=== PATIENT | female | born 1965 | race Caucasian/White ===

== ENCOUNTER 2022-03-05 09:06 | Emergency (ER) | payer OTHER, SELFPAY ==
--- NOTE | 2022-03-05 09:08 | ED.URI ---
HPI - URI/Sore Throat General Stated Complaint: Sore Throat/Back Pain Time Seen by Provider: 03/05/22 09:08 Source: patient and RN notes reviewed History of Present Illness HPI Narrative: patient is a 56-year-old female who presents to urgent care with complaints of back pain, sore throat and congestion. Patient states that her symptoms started 3 days ago and she has been taking amoxicillin. Patient states that with leftover medication from an old infection. Patient has not followed up her doctor. Denies any fever cough. States she had a negative COVID test at home. No other acute complaints. No distress noted. Patient aware of the plan of care. Some parts of this dictation were generated by voice recognition software and may contain typographical and/or grammatical inaccuracies. Related Data Home Medications Medication Instructions Recorded Confirmed No Home Medications 03/05/22 03/05/22 Allergies Allergy/AdvReac Type Severity Reaction Status Date / Time No Known Allergies Allergy Verified 03/05/22 09:26 Review of Systems Review of Systems: CONSTITUTIONAL: Denies fever, chills, or sweats. EYES: Denies visual changes, redness, or discharge. ENT: Reports of congestion, rhinorrhea and sore throat CARDIOVASCULAR: Denies chest pain, palpitations, or edema. RESPIRATORY: Denies cough or dyspnea. GASTROINTESTINAL: Denies abdominal pain, nausea, vomiting, or diarrhea. GENITOURINARY: Denies dysuria or hematuria. SKIN: Denies rash or itching. MUSCULOSKELETAL: Reports of body aches / back pain NEUROLOGIC: Denies headache, numbness, or weakness. All other systems reviewed are negative, except as documented in HPI. PMFSH Comments At the time of my signature, I reviewed and agree with the nursing past medical, surgical, social, and family history. There is no relevant family history pertinent to the patient complaint. Exam Narrative: GENERAL: This is a well-nourished, well-developed patient. appears fatigued HEAD: normocephalic, atraumatic. EYES: PERRL. Sclera clear/white. Vision is grossly intact. EARS: External ears normal, auditory canals clear and without drainage, TMs normal without perforation. Hearing grossly intact. NOSE: External nose normal with no obvious nasal discharge. Moderate bilateral erythema there with clear yellow rhinorrhea THROAT: Mucous membranes moist, posterior pharynx clear. moderate postnasal drainage. NECK: Neck supple, non-tender without lymphadenopathy CARDIOVASCULAR: Regular rate and rhythm without murmurs, gallops, or rubs. RESPIRATORY: scant expiratory wheeze to bilateral upper lobes. Otherwise clear SKIN: warm, intact with no suspicious lesions or rash, good texture and turgor. NEURO: awake, alert, and oriented to person, place and time. There were no obvious focal neurologic abnormalities. EXTREMITIES: No clubbing, cyanosis, or edema. Course Course Level of Care: Express Care Visit Vital Signs Vital signs: Vital Signs Temperature 97.8 F 03/05/22 09:12 Pulse Rate 82 03/05/22 09:12 Respiratory Rate 20 03/05/22 09:12 Blood Pressure 143/78 H 03/05/22 09:12 Pulse Oximetry 98 03/05/22 09:12 Oxygen Delivery Room Air 03/05/22 09:12 Temperature 97.8 F 03/05/22 09:12 Pulse Rate 82 03/05/22 09:12 Respiratory Rate 20 03/05/22 09:12 Blood Pressure 143/78 H 03/05/22 09:12 Pulse Oximetry 98 03/05/22 09:12 Oxygen Delivery Room Air 03/05/22 09:12 reviewed- Patient is informed that they may have pre-hypertension or hypertension based on a blood pressure reading in the department. I recommend the patient call the primary care provider listed on their discharge instructions or a physician of their choice this week to arrange follow-up for further evaluation of possible pre-hypertension or hypertension. MDM - URI/Sore Throat MDM Narrative Medical decision making narrative: advised patient to continue [id number] medications such as
[2022-03-05 09:12] VITALS: BP 143/78; PULSE 82; RESP 20; TEMP 36.6; O2SAT 98
== END 2022-03-05 09:58 | disposition home or self-care (01) ==
PROVIDERS: Emergency Provider Nurse Practitioner Family
DX: J02.9 Acute pharyngitis, unspecified (principal); R09.81 Nasal congestion; M54.9 Dorsalgia, unspecified
CPT/HCPCS: 99211; G0463

== ENCOUNTER 2023-01-20 09:26 | Emergency (ER) | payer MEDICAID, SELFPAY ==
[2023-01-20 09:40] VITALS: BP 150/82; PULSE 76; RESP 16; TEMP 36.6; O2SAT 100
--- NOTE | 2023-01-20 10:27 | ED.EXTPRO ---
HPI - Extremity Problem General Chief complaint: Extremity Problem,Nontraumatic Stated complaint: Left Foot Pain Time Seen by Provider: 01/20/23 10:27 Source: patient, RN notes reviewed and old records reviewed Mode of arrival: ambulatory Limitations: no limitations History of Present Illness HPI Narrative: 57 year old female who presents to [facility] care with complaints of 3-4 weeks of left heel pain especially when first arising in the morning and throughout the day. Patient reports that she has been using a iced water bottle and rolling her foot on the bottle. 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 Patient reports that she has been wearing good supportive tennis shoes but pain continues. MD Complaint: extremity pain Onset (ago): week(s) (3-4 weeks) Severity scale (1-10): 6 Exacerbating factors: weight bearing Related Data Allergies Allergy/AdvReac Type Severity Reaction Status Date / Time No Known Allergies Allergy Verified 01/20/23 09:55 Review of Systems Review of Systems: CONSTITUTIONAL: Denies fever, chills, or sweats. CARDIOVASCULAR: Denies chest pain, palpitations, or edema. RESPIRATORY: Denies cough or dyspnea. SKIN: Denies rash or itching. Denies laceration or abrasions MUSCULOSKELETAL: Reports heel pain left NEUROLOGIC: Denies numbness, or weakness. All systems reviewed & are unremarkable except as noted in HPI and below PMFSH Past Medical History Medical History (Updated 01/22/23 @ 08:50 by Debbie Casillas NP) Post-menopausal Social History Social History (Updated 01/22/23 @ 08:54 by Debbie Casillas NP) Smoking status: Former smoker Alcohol intake: current Alcohol use details: rare Substance use type: does not use Living arrangements: with family Gender identity (if verbalized by the patient): Female Comments At time of signature, agree with nursing past medical, surgical, social and family history. There is no relevant family history pertinent to the presenting complaint Exam Narrative: GENERAL: Well-appearing, well-nourished, and in no acute distress. HEAD: Normocephalic, atraumatic. EYES: PERRLA, conjunctivae clear NECK: Supple. CHEST: Speaks in full sentences. No respiratory distress.SAO2 100% on room air HEART: Regular rate and rhythm. Normal and equal peripheral pulses. EXTREMITIES:left foot has normal strength and sensation, normal range of motion. No edema or ecchymosis. 5/5 strength with normal flexion and extension. Normal sensation with sensitivity to light touch and pain. point tenderness heel especially medial aspect.? ?No open wounds, no skin tenting, no devitalized tissue or atrophy, no trophic changes, no obvious deformity, alignment normal, nearby joints and structures intact. Distal pulses palpable and equal bilaterally, skin warm, dry, pink. Capillary refill less than 3 seconds. Course Course Emergency Course: Patient is aware of diagnosis, understands and agrees to treatment plan. Anticipatory guidance given. Patient agrees to follow-up as directed and is aware of reasons to seek care at the emergency department. Portions of this record may have been created with voice recognition software Level of Care: Express Care Visit Vital Signs Vital signs: Vital Signs Temperature 36.6 C 01/20/23 09:40 Pulse Rate 76 01/20/23 09:40 Respiratory Rate 16 01/20/23 09:40 Blood Pressure 150/82 H 01/20/23 09:40 Pulse Oximetry 100 01/20/23 09:40 Oxygen Delivery Room Air 01/20/23 09:40 Temperature 36.6 C 01/20/23 09:40 Pulse Rate 76 01/20/23 09:40 Respiratory Rate 16 01/20/23 09:40 Blood Pressure 150/82 H 01/20/23 09:40 Pulse Oximetry 100 01/20/23 09:40 Oxygen Delivery Room Air 01/20/23 09:40 Critical Care Time Critical Care Time Critical Care Time: No Discharge Plan Discharge Clinical Impression: Plantar fasciitis of left foot Patient Dispositio
== END 2023-01-20 10:55 | disposition home or self-care (01) ==
PROVIDERS: Emergency Provider Registered Nurse; PCP Nurse Practitioner Family
DX: M72.2 Plantar fascial fibromatosis (principal); Z87.891 Personal history of nicotine dependence
CPT/HCPCS: 99213; G0463

== ENCOUNTER 2025-02-24 09:50 | Emergency (ER) | payer OTHER, SELFPAY ==
--- OUTSIDE RECORDS SUMMARY | 2025-02-24 09:55 | XMS_ITS | Clinical Summary ---
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 Name Role Phone No, Physician Primary Care Provider [phone] Allergies No known active allergies Medications ondansetron (ZOFRAN) 4 mg tablet Take 1 tablet (4 mg total) by mouth every 6 (six) hours 12 tablet Active Additional Information Patient not taking.Reported on 04/14/2023 Active Problems No known active problems Social History Tobacco Use Types Packs/Day Years Used Date Smoking Tobacco: Former Cigarettes Q uit: 2007 Tobacco Cessation:Counseling Given: Not Answered Personal Safety Answer Date Recorded Getting School Help Needed Not on file 08/13 Comments Unknown Sex and Gender Information Value Date Recorded Sex Assigned at Not on file Legal Sex Female 8:18 AM [employer] Gender Identity Not on file Sexual Orientation Not on file Last Filed Vital Signs Vital Sign Reading Time Taken Comments Blood Pressure 114/70 04/14/2023 4:34 PM [employer] Pulse 89 04/14/2023 4:34 PM [employer] Temperature 37.2 C (98.9 F) 04/14/2023 4:34 PM [employer] Respiratory Rate 16 04/14/2023 4:34 PM [employer] Oxygen Saturation 98% 04/14/2023 4:34 PM [employer] Inhaled Oxygen Concentration - - Weight 77.1 kg (170 lb) 04/14/2023 4:34 PM [employer] Height 167.6 cm (5' 6) 07/15/2022 7:54 PM CDT Body Mass Index 27.44 07/15/2022 7:54 PM CDT Plan of Treatment Health Maintenance Due Date Last Done Comments Breast Cancer Screening-Mammogram 1965 Cervical Cancer Screening 1965 Colon Cancer Screening-Colonoscopy 1965 Depression Screening 1965 Hepatitis C Screening 1965 DTaP/Tdap/Td Vaccine (1 - Tdap) 07/25/1974 Hepatitis B Screening 07/25/1981 Regular Well Visit/Exam 18-64 07/25/1981 Zoster Vaccine (1 of 2) 07/25/2013 Covid-19 Vaccine (3 - 2024-2 6 season) 2024 07/28/2020, 07/07/2020 Influenza Vaccine (#1) 2024 Pneumococcal vaccine <65 Aged Out No longer eligible based on patient's age to complete this topic [facility] Care Teams Brokerage 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
--- OUTSIDE RECORDS SUMMARY | 2025-02-24 09:55 | XMS_ITS | Data Portability ---
Author Organization [place] - [facility] [place], Main Office Address [address] [place] [address] Care Team Providers Care Dog Catcher Name Role Phone RAMONA GASPAR Primary Care Provider RAMONA GASPAR Referring Provider [phone] MARC OWEN Teacher Education Instructor MECCA OLIVARES Engineer Sergeant MILVIA MORE Imaging System Administrator Assessment Encounter Date Assessment Date Assessment LastModified by Organization Details LastModified Time 06/26/2024 06/26/2024 11/30/2023: VIT D 26.4 Gluc 107, AST 48 Chol 231, LDL 137 12/24/2023: Hep pane/GGT: Neg 04/18/2024: Gluc 113 Not available 06/26/2024 17:47:04 11/20/2024 11/20/2024 11/30/2023: VIT D 26.4 Gluc 107, AST 48 Chol 231, LDL 137 12/24/2023: Hep pane/GGT: Neg 04/18/2024: Gluc 113 Not available 11/20/2024 18:08:11 11/30/2024 11/30/2024 pigmented lesion left breast skin. Will schedule for excisional biopsy here in the office under local anesthesia. Risks benefits procedure were discussed. Risks include bleeding, infection and numbness Not available 11/30/2024 11:17:49 12/05/2024 12/05/2024 Pigmented lesion left breast skin. Excision today, sent to pathology. Will f/u in 10-14 days. Not available 12/05/2024 15:01:06 12/19/2024 12/19/2024 Sutures removed. Pathology showed SK. RTC PRN. Not available 12/19/2024 10:53:50 Plan of Treatment Reminders Order Date Submit Date Provider Last Modified By Organization Details Last Modified Time Details Appointments Follo w Up 15 2025 03:30P M Ramona hamlin MD Not available Not available Not available Lab lipid panel , serum 2024 025 [facility] (Lab), [address] [place], [address], 11/21/2024 11:09:25 CMP, serum or plasm a 2024 025 [facility] (Lab), [address] [place], [address], 11/21/2024 11:09:25 CBC w/ auto diff 2024 025 [facility] (Lab), [address] [place], [address], 11/21/2024 11:09:25 TSH + free T4, serum 2024 025 [facility] (Lab), [address] [place], [address], 11/21/2024 11:09:25 vitam in D, 25-hy droxy , total , serum 2024 025 [facility] (Lab), [address] [place], [address], 11/21/2024 11:09:25 vitam in B12 + folat e, serum or blood [facility] [address] [place], [address], 11/21/2024 11:09:25 vitam in D, 25-hy droxy , total , serum 2024 025 [facility] (Lab), [address] [place], [address], 11/18/2024 04:16:50 lipid panel , serum 2024 025 [facility] (Lab), [address] [place], [address], 11/18/2024 04:16:47 CMP, serum or plasm a 2024 025 [facility] (Lab), [address] [place], [address], 11/18/2024 04:16:48 CBC w/ auto diff 2024 025 [facility] (Lab), [address] [place], [address], 11/18/2024 04:16:49 TSH + free T4, serum 2024 025 [facility] (Lab), [address] [place], [address], 11/18/2024 04:16:48 vitam in B12 + folat e, serum or blood 2024 025 [facility] (Lab), [address] [place], [address], 11/18/2024 04:16:[address] [facility] e call patie nt to sched ule an appoi joseen t with any parti cipat ion provi lopez. Thank you. 2024 025 RUSS Teague MD, 2 [facility], [address], [address], 02/19/2025 04:22:[address] refer ral - Pleas e call patie nt to sched ule. 2024 025 [facility], [address] [facility] [address], [place], [address], 02/19/2025 04:22:42 podia trist refer ral - Pleas e call patie nt to sched ule an appoi ntmen t. Thank you. 2024 025 RUSS Owen DPM, [address], [address], [place], [address], 02/19/2025 04:22:43 gener al surge on refer ral - Pleas e call patie nt to sched ule an appoi ntmen t. Thank you. 2024 025 [email or web address] Charan Hernandez MD, [address], [address], [place], [address], 02/19/2025 14:43:[address] refer ral - Pleas e call patie nt to sched ule an appoi ntmen t with any parti cipat ion provi lopez. Thank you. 2024 025 [email or web address] Frances Teague MD, 2 [facility], [address], [place], [address], 01/01/2025 09:04:[address] refer ral - Pleas e call patie nt to sched ule. 2024 025 [email or web address] [facility], [address] [facility] [address], [place], [address], 12/25/2024 08:41:28 podia trist refer ral - Pleas e call patie nt to sched ule an appoi ntmen t. Thank you. 2024 025 [email or web address] Marc Owen DPM, [address], [address], [place], [address], 12/25/2024 08:43:36 Procedures colon oscop y scree kathya (PROC ) - Pleas e call patie nt to sched ule an appoi ntmen t. Thank you. 2024 025 [facility], [address] [facility], [address], [place], [address], 02/19/2025 04:22:43 colon oscop y scree kathya (PROC ) - Pleas e call patie nt to sched ule an appoi ntmen t. Thank you. [address] [facility] [place], [address] [facility], [address], [place], [address], 10/04/2024 09:04:51 Surgeries None recor ded. Imaging MAMMO , scree kathya, bilat eral - Pleas e call patie nt to sched ule. 2024 025 [facility] ([facility]), [address], [place], [address], 11/28/2024 16:55:12 Medication Orders atorv astat in 20 mg table t 2024 025 [id number], [address] [place], [address], 11/20/2024 17:35:26 Lipit or 40 mg table t [email or web address][id number], [address] [place], [address], 11/20/2024 16:33:40 Patient TargetsNo targets recorded. Patient InstructionsNo instructions recorded. Reason for Referral International Specialist Referral for Gy necologic examination Please call patient to schedule. Referring Physician: Ramona Gaspar, Internal Medicine, Encounter Date: 06/26/2024 Teacher Education Instructor Referral for Bila teral heel pain Please call patient to schedule an appointment. Thank you. Referring Physician: Ramona Gaspar Internal Medicine, Encounter Date: 06/26/2024 Engineer Sergeant Referral for Pe ripheral vascular disease Please call patient to schedule an appointment with any participation provider. Thank you. Referring Physician: Ramona Gaspar Internal Medicine, Encounter Date: 06/26/2024 International Specialist Referral for Gy necologic examination Please call patient to schedule. Referring Physician: Ramona Gaspar Internal Medicine, Encounter Date: 11/20/2024 Teacher Education Instructor Referral for Bila teral heel pain Please call patient to schedule an appointment. Thank you. Referring Physician: Ramona Gaspar Internal Medicine, Encounter Date: 11/20/2024 Engineer Sergeant Referral for Pe ripheral vascular disease Please call patient to schedule an appointment with any participation provider. Thank you. Referring Physician: Ramona Gaspar Internal Medicine, Encounter Date: 11/20/2024 General Surgeon Referral for Skin lesion Please call patient to schedule an appointment. Thank you. Referring Physician: Ramona Gaspar Internal Medicine, Encounter Date: 11/20/2024 Results Created Date Observation Date Name Description Value Unit Range Abnormal Flag Note LastModifiedBy Organization Detail LastModifiedTime 12/06/1912/11/2024 PATHO LOGY SERVI CE pathserv SEE COMMEN T See separ ate patho logy repor t. Not Available [facility]) [address], [place], [address], 12/11/2024 16:19:19 11/29/1911/28/2024 adams gutierrezo, bilat [facility] [address] [place] [address] Paticriss t Name: HAMLINDSAY PERDOMO Access ion #: [id number] Sex: F : 1965 8 7 Dictat ed By: Sandra Lawrence Attend ing Physic julio c: RENETTA MARIA Orderi ng Physic julio c: RENETTA MARIA Exam Date: 2024 15:35 PM Exam Name: MG SCRN BREAST INGRID BILAT Admitt ing Diagno sis(es ): PROCED URE: SCREEN ING MAMMOG FELY WITH TOMOSY NTHESI S REASON FOR EXAM: screen ing COMPAR JONATHAN: MG DIGITA L DMITRY BILAT SCREEN on DOS: 06/15/23 TECHNI QUE: Bilate ral CC and MLO views obtain ed. Images were obtain ed using a Digita l Tomosy nthesi s Unit. Standa rd 2D and 3D Tomosy nthesi s images were review ed. This examin ation was analyz ed using Lunit Insigh t DBT/MM G in additi on to a radiol ogist review , an AI softwa re develo ped to enhanc e the effect ivenes s of breast cancer screen ing with mammog vanessa. FINDIN GS: BREAST COMPOS ITION: C - The breast s are hetero geneou sly dense, which may obscur e small masses . In the right breast , no asymme trical parenc hymal patter n, giuseppe ectura l distor tion, pleomo rphic microc alcifi cation s or masses . In the left breast , no asymme trical parenc hymal patter n, giuseppe ectura l distor tion, pleomo rphic microc alcifi cation s or masses . IMPRES ROSALINA: No findin gs of malign alexis. RECOMM ENDATI ON: Recomm end annual mammog fely. ASSESS MENT: Page 1 [facility] [place] [address] [facility] [place] [address] [phone] Patien t Name: LINDSAY REESE Access ion #: [id number] Sex: F : 1965 8 7 Dictat ed By: Sandra Lawrence Attend ing Physic julio c: DC HERBERTALA Orderi ng Physic julio c: RENETTA MARIA Exam Date: 2024 15:35 PM Exam Name: MG BARKER BREAST INGRID BILAT Admitt ing Diagno sis(es ): BIRADS : 1 - Negati ve Electr onical ly Signed by: Sandra Lawrence at 2024 15:50: 08 PM Page 2 INTERFACE [facility] (Imaging) [address] [place], [address], 11/28/2024 16:52:19 11/29/19 25 11/28/2024 MAMMO , scree kathya, bilat eral No observ ation record ed. [facility] [address] [place], [address], 11/28/2024 16:55:12 Result Notes None recorded. Problems Name Problem SNOMED Code Status Onset Date Resolution Date Notes Provider Name and Address Organization Details Recorded Time Serum vitamin B12 below reference range 820455718 Active 2023 Ramona hamlin MD [address], [address], [place], [address], [employer] 4 16:45:34 Bilateral heel pain 5065961717848 9108 Active 2023 Ramona hamlin MD [address], [address], [place], [address], [employer] 4 16:47:33 Bilateral plantar fasciitis 3931398886065 9108 Active 2023 Marc Owen DPM [address], [address], [place], [address], [employer] 4 16:56:14 Bilateral bone spur of calcaneum 9609871051795 9104 Active 2023 Marc Owen DPM [address], [address], [place], [address], [employer] 4 13:39:42 Peripheral vascular disease 710058319 Active 2023 Ramona hamlin MD [address] [facility], [place] [address], [place], [address], [facility] 4 17:12:46 Hyperlipide tony 72312152 Active 2023 Esme Paez MA null, [facility] 4 11:25:12 Vitamin D deficiency 94106752 Active 2023 Esme Paez MA null, [facility] 4 11:25:31 Liver enzymes level above reference range 612867576 Active 2023 Esme Paez MA null, [facility] 4 11:25:47 Skin lesion 57138537 Active 2024 Ramona hamlin MD [address] [facility], [facility] [address], [place], [address], [facility] 5 17:33:47 Problem Notes None recorded. Procedures Surgical History Date Name Laterality Status Provider Name and Address Organization Details Recorded Time Excision Cyst Multilayer completed Charan almonte MD [address], [place] [address], [place], [address], [facility] 12/05/2024 14:53:52 Imaging Results None recorded. Procedure Notes None recorded. Medical Equipment None Reported. Allergies No known drug allergies Medications Name Sig Start Date Stop Date Status Note LastModified by Organization Details LastModified Time atorvasta tin 40 mg tablet TAKE 1 TABLET BY MOUTH EVERY DAY 11/20 completed pt stopped on her own Not Available Not Available Not Available atorvasta tin 20 mg tablet TAKE 1 TABLET BY MOUTH EVERY DAY active Not Available Not Available No t Available ondansetr on HCl 4 mg tablet TAKE 1 TABLET BY MOUTH EVERY 6 HOURS 06/08 completed Not Available Not Available Not Available prednison e 20 mg tablet TAKE 1 TABLET BY MOUTH TWICE DAILY 06/08 completed Not Available Not Available Not Available amoxicill in 500 mg tablet TAKE 1 TABLET BY MOUTH TWICE A DAY FOR 10 DAYS 06/26 completed Not Available Not Available Not Available erythromy sadaf 5 mg/gram (0.5 %) eye ointment APPLY SMALL AMOUNT (1/2 INCH RIBBON) TO THE INSIDE OF LOWER EYELID TWICE DAILY 11/20 completed Not Available Not Available Not Available ergocalci ferol (vitamin D2) 1,250 mcg (50,000 unit) capsule TAKE 1 CAPSULE EVERY WEEK BY ORAL ROUTE. 06/26 completed Not Available Not Available Not Available methylpre dnisolone 4 mg tablets in a dose pack TAKE 1 DOSE PACK BY MOUTH DIRECTED 08/15 completed Not Available Not Available Not Available Vitals Date Recorded Body height Body mass index (BMI) Body weight Body temperature Heart rate Systolic And Diastolic Provider Name and Address Organization Details Last Updated DateTime 5 167.64 cm 27 kg/m2 13101.9 3 g 97.3 [degF] 78 /min 130/80 mm[Hg] Jeanne Beach [facility] [employer] [facility] 5 17:05:13 Date Recorded Body height Body mass index (BMI) Body weight Body temperature Heart rate Systolic And Diastolic Provider Name and Address Organization Details Last Updated DateTime 5 167.64 cm 26.6 kg/m2 85667.7 4 g 97.6 [degF] 72 /min 140/80 mm[Hg] Jeanne Beach [facility] [employer] [facility] 5 16:35:32 Date Recorded Body height Body mass index (BMI) Body weight Body temperature Respiratory rate Heart rate Oxygen saturation Systolic And Diastolic Provider Name and Address Organization Details Last Updated DateTime 5 167.64 cm 26.6 kg/m2 40839.7 4 g 97.8 [degF] 14 /min 84 /min 98 % 120/80 mm[Hg] Cally Greco [facility] [employer] [facility] 5 10:32:01 Date Recorded Body height Body weight Heart rate Oxygen saturation Systolic And Diastolic Provider Name and Address Organization Details Last Updated DateTime 12/05/2024 167.64 cm 90484.74 g 82 /min 99 % 122/82 mm[Hg] Maximino Ruvalcaba RMA [employer] 5 11:38:38 Date Recorded Body height Body mass index (BMI) Body weight Body temperature Heart rate Respiratory rate Oxygen saturation Systolic And Diastolic Provider Name and Address Organization Details Last Updated DateTime 5 167.64 cm 26.6 kg/m2 94821.7 4 g 98 [degF] 82 /min 14 /min 99 % 122/82 mm[Hg] Cally Fannie [facility] 5 10:31:06 Social History Question Answer Notes LastModified by Organization Details LastModified Time Tobacco Smoking Status Former Smoker quit age 38 Jeanne Beach DOMINICKLaura villarreal, [employer] 06/26/2024 17:03:24 What Is Your Level Of Caffeine Consumption? Moderate Information not available 06/09/2023 In The 14 Days Before Symptom Onset, Have You Had Close Contact With A Laboratory-confi rmed COVID-19 While That Case Was Ill? No Information not available 06/09/2023 In The 14 Days Before Symptom Onset, Have You Had Close Contact With A Person Who Is Under Investigation For COVID-19 While That Person Was Ill? No Information not available 06/09/2023 What Type Of Diet Are You Following? REGULAR Information not available 06/09/2023 What Is The Highest Grade Or Level Of School You Have Completed Or The Highest Degree You Have Received? [id number] Information not available 06/09/2023 Have There Been Any Changes To Your Family Or Social Situation? No Information not available 06/09/2023 What Is The Fluoride Status Of Your Home? Unknown Information not available 06/09/2023 When Did You Quit Smoking? 16+yearssincelastmilad rolon Information not available 06/26/2024 Are There Any Guns Present In Your Home? No Information not available 06/09/2023 Do You Use Insect Repellent Routinely? Yes Information not available 06/09/2023 Where Do You Live? SingleLevelHouse Information not available 06/09/2023 What Was The Date Of Your Most Recent Tobacco Screening? 11/20/2024 Information not available 11/20/2024 Do You Have Any Pets? No Information not available 06/09/2023 What Is Your Relationship Status? Information not available 06/09/2023 Do You Use Your Seat Belt Or Car Seat Routinely? Yes Information not available 06/09/2023 Do You Have Smoke And Carbon Monoxide Detectors In Your Home? Yes Information not available 06/09/2023 At What Age Did You Start Smoking Tobacco? 20 Information not available 06/26/2024 Are You Passively Exposed To Smoke? No Information not available 06/09/2023 Are There Any Smokers In Your House? No Information not available 06/09/2023 How Much Tobacco Do You Smoke? No 1/2 Ppd Information not available 06/26/2024 Do You Use Sunscreen Routinely? Yes Information not available 06/09/2023 Have You Recently Traveled Abroad? No Information not available 06/09/2023 Sex: Unknown Functional Status Question Answer Note LastModified by Organizat ion Details LastModified Time Do you use any illicit or recreational drugs? No Information not available 06/09/2023 Do you or have you ever used any other forms of tobacco or nicotine? No Information not available 06/09/2023 What is your level of alcohol consumption? None Information not available 06/09/2023 Are you currently employed? 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 Moderate Information not available 06/09/2023 Mental Status Question Answer Note LastModified by Organization D etails LastModified Time Do you feel stressed (tense, restless, nervous, or anxious, or unable to sleep at night)? [id number] Information not available 06/09/2023 Family History Relationship Description Onset Age of this Age Resolved Age Notes LastModified by Organization Details LastModified Time Father No current problems or disability [email or web address] Not available 08/2023 15:50:10 Mother No current problems or disability [email or web address] Not available 08/2023 15:50:10 Medical History Condition Response NERVE DISEASE N BLINDNESS N RHEUMATIC FEVER N KIDNEY STONES N BLADDER PROBLEMS N MRSA N OTHER # 1 N POLIO N LUNG DISEASE/DISORDER N HISTORY OF DRUG ABUSE N COPD N RADIATION / CHEMOTHERAPY N Other # 2 N BLOOD DISEASES N EAR OR HEARING PROBLEMS N MUMPS N SHINGLES N BOWEL PROBLEMS N DEPRESSION (INCLUDING POST ) N FAILED BACK SYNDROME N STROKE/TIA N ULCERS N BENIGN PROSTATIC HYPERPLASIA N MEASLES N HYPOTENSION N MYOCARDIAL INFARCTION N OBESITY N GERD/NAUSEA N ANEURYSM N URINARY/BLADDER/KIDNEY PROBLEMS N CORONARY ARTERY DISEASE (CAD) N Do you have Advance directive? N ADDICTION CONCERNS N ENDOMETRIOSIS N Impotence N USE OF BLOOD THINNERS N SKIN PROBLEMS N GASTROINTESTINAL DISORDER N PERIPHERAL VASCULAR DISEASE N MUSCLE,JOINT OR BONE PROBLEMS N GASTROINTESTINAL BLEEDING N BLOOD CLOTS N ASTHMA N Abdominal Pain N CATARACTS N ARTERIAL INSUFFICIENCY N ERECTILE DYSFUNCTION N VARICOSITIES N GI PROBLEMS N Low Testosterone N INFERTILITY N AIDS/HIV N CHEMOTHERAPY / RADIATION N LIVER DISEASE N MALE HYPOGONADISM N HYPERTENSION N Deficiency N TOURETTE'S N ANXIETY DISORDER N BLOOD TRANSFUSION N ANEMIA/BLOOD DISORDER N CHRONIC EAR INFECTIONS N TUBERCULOSIS N GLAUCOMA N FOOT PROBLEM N DIVERTICULITIS N CHICKENPOX N SLEEP APNEA N BACK INJECTIONS N ALLERGIES/HAYFEVER N INFECTIOUS DISEASE N HEART ARRHYTHMIA N PROSTATE N ESRD N INSOMNIA N HIGH CHOLESTEROL / HYPERLIPIDEMIA N HYPERTHYROIDISM N EYE PROBLEMS N PVD N EDEMA N CHRONIC PAIN SYNDROME N HYPOTHYROIDISM N CONSTIPATION N CAROTID BLOCKAGE N BACK / NECK PROBLEMS N HAVE YOU BEEN HOSPITALIZED OR SEEN IN [facility] IN THE PAST YEAR ? N ATHEROSCLEROSIS N BREAST PROBLEMS N DIALYSIS N POLYCYSTIC OVARIES N ECZEMA N OSTEOPOROSIS N ARTHRITIS N NO SIGNIFICANT PAST MEDICAL HISTORY N APPENDICITIS N DIABETES, TYPE N BAD TEETH N VON WILLIBRAND'S DISEASE N ENT N HEARTBURN / REFLUX N GI N AUTISM SPECTRUM DISORDER (ASD) N POST LAMINECTOMY SYNDROME N HEPATITIS / LIVER DISEASE N GOUT N SLEEP DISORDER N ALZHEIMER'S DISEASE N Brain Problems N HERPES N DEMENTIA N HEADACHES/MIGRAINES N SEIZURES/EPILEPSY N VASCULAR DISEASE N PACEMAKER N DIZZINESS N HEART DISEASE/HEART PROBLEMS N KIDNEY DISEASE N MULTIPLE SCLEROSIS N NEUROPSYCHOLOGICAL N CARDIAC ARRHYTHMIA N CANCER: SPECIFY N ATRIAL FIBRILLATION N Gall Stones N PULMONARY EMBOLISM N AUTOIMMUNE DISEASE N Gynecological HistoryNo gynecological history recorded. Obstetrics History GPAL:G 0 P 0 0 0 0 Immunizations Vaccine Type Date Status Note Provider Nam e and Address Organization Details Recorded Time COVID-19, mRNA, LNP-S, PF, 30 mcg/0.3 mL dose 07/07/2020 completed HUANG Lance, XAVIER [place] [employer] 06/26/2024 17:02:17 COVID-19, mRNA, LNP-S, PF, 30 mcg/0.3 mL dose 07/28/2020 completed HUANG Lance, [facility] [employer] [facility] 06/26/2024 17:02:17 Past Encounters Encounter ID Performer Location Encounter Start Date Encounter Closed Date Diagnosis/Indication Diagnosis SNOMED-CT Code Diagnosis ICD10 Code Diagnosis IMO Codes Diagnosis Note [id number] Ramona alvares MD [facility] Internal Med [place] [address] [facility] [place] [address] 06/09/2023 16:21:26 06/09/2023 17:23:14 Screening - NAD 385003402 Z13.9 C-scope: Get this Mammogram: Get this donePAP: Get this doneDEXA: Get this Get yearly flu shot, get tdap if not doneGet shingrix vaccineCan do COVID 19 vaccine and its boosters RTC in 3 months, do labsER if worse, she and her verbalized her understand ing of the above Screening mammography 24 311241 Z12.31 Screening for osteoporosis 178124812 Z13.820 Gynecologi c examination 13441880 Z01.419 Screening for malignant neoplasm of colon 898448899 Z12.11 Hyperlipid emia screening 926925456 Z13.220 Serum meli min B12 below reference range 484449383 R79.89 Bilateral heel pain 1563 937599 1823785 M79.671 M79.672 Get a referral to podiatry [id number] Marc Owen DPM [facility] Pod[facility] [place] [address] [place] [address] 07/19/2023 15:40:55 07/21/2023 14:43:21 Bilateral plantar fasciitis 7603061368 4100937 M72.2 rice therapyno strenuous activities educated on shoe gearicing and stretching reviewedfo llow-up in 1 month Bilateral bone spur of calcaneum 2934359897 9799688 M77.31 M77.32 x-rays reviewed [id number] Marc Owen DPM [facility] Pod[facility] [place] [address] [place] [address] 08/16/2023 16:35:05 08/18/2023 11:43:27 Bilateral plantar fasciitis 7002564620 3315592 M72.2 rice therapyBil ateral heel injections no strenuous activities educated on shoe gearicing and stretching reviewedre fused physical therapyfol low-up in 1 month [id number] Marc Owen DPM [facility] Podiatry [place] [address] [place] [address] 09/06/2023 16:35:46 09/08/2023 11:59:56 Bilateral plantar fasciitis 0293244039 1651215 M72.2 resolvedco ntinue stretching exercises and supportive shoe gearfollow -up as needed [id number] Ramona alvares MD [facility] Internal Med [place] [address] [place] [address] 11/29/2023 16:19:24 11/29/2023 17:15:30 Screening - NAD 957518243 Z13.9 C-scope: Get this Mammogram: 06/16/2023 : Neg PAP: Get this done DEXA: 06/15/2023 : Osteopenia Get yearly flu shot, get tdap if not doneGet shingrix vaccineCan do COVID 19 vaccine and its boosters RTC in 3 months, do labsER if worse, she and her verbalized her understand ing of the above Screening for osteoporosis 445483890 Z13.820 Gynecologi c examination 66445879 Z01.419 Screening for malignant neoplasm of colon 031069480 Z12.11 Hyperlipid emia screening 757485424 Z13.220 Serum meli min B12 below reference range 416046967 R79.89 Bilateral heel pain 1563 264[address] M79.[address] Owen 09/06/2023 Peripheral vascular disease [id number] I73.[address] Olivares [id number] Ramona alvares MD [facility] Primary Care Sean calvert [address] [facility] [address] [place] [place] [address] 03/22/2024 15:53:25 03/22/2024 17:04:37 Screening - NAD 232290561 Z13.9 C-scope: Get this Mammogram: 06/16/2023 : Neg PAP: Get this done DEXA: 06/15/2023 : Osteopenia , more calcium and vit d in diet Get yearly flu shot, get tdap if not doneGet shingrix vaccineCan do COVID 19 vaccine and its boosters RTC in 3 months, do labsER if worse, she and her verbalized her understand ing of the above Screening for osteoporosis 414068943 Z13.820 Gynecologi c examination 82032911 Z01.419 Screening for malignant neoplasm of colon 004077203 Z12.11 Serum meli min B12 below reference range 097320979 R79.89 Bilateral heel pain 1563 [address] Owen 09/06/2023 , next apt 04/10/2024 Peripheral vascular disease 888219377 I73.9 Dr Olivares 01/26/2024 Cardiac perfusion PET-CT 03/17/2024 Liver enzy mes level above reference range 315278416 R74.01 US Liver 03/01/2024 : NegGGT/Hep panel: Neg Hyperlipidemia 59293936 E78.5 On atorvastat in 40mg [id number] Marc Owen DPM [facility] [place] [address] [place] [address] 04/10/2024 11:14:43 04/10/2024 12:56:12 Bilateral plantar fasciitis 3723568644 3695621 M72.2 rice therapycon tinue stretching exercises and supportive shoe gearcontin ue supportive shoe gearrecomm end pinnacle [employer] orthoticsf ollow-up 3-4 weeks if not improved we will send a formal physical therapy Bilateral heel pain 1563 246429 9505186 M79.671 M79.672 as above Bilateral bone spur of calcaneum 0950853455 9267124 M77.31 M77.32 x-rays reviewed- no significan t change continued spurring to the calcaneus bilateral [id number] Ramona alvares MD [facility] Primary Care [facility] [address] [facility] [address] [place] [address] 06/26/2024 16:20:34 06/26/2024 17:49:55 Screening - NAD 693385697 Z13.9 C-scope: Get this Mammogram: 06/16/2023 : Neg PAP: Get this done DEXA: 06/15/2023 : Osteopenia , more calcium and vit d in diet Get yearly flu shot, get tdap if not doneGet shingrix vaccineCan do COVID 19 vaccine and its boosters RTC in 3 months, do labsER if worse, she and her verbalized her understand ing of the above Screening for osteoporosis 027627812 Z13.820 Gynecologi c examination 70453567 Z01.419 Screening for malignant neoplasm of colon 968390626 Z12.11 Serum meli min B12 below reference range 555348859 R79.89 Bilateral heel pain 1563 [address] Owne 09/06/2023 , next apt 04/10/2024 Peripheral vascular disease 094864004 I73.9 Dr Olivares 01/26/2024 Cardiac perfusion PET-CT 03/17/2024 Liver enzy mes level above reference range 996024251 R74.01 US Liver 03/01/2024 : NegGGT/Hep panel: Neg Hyperlipidemia 22534963 E78.5 On atorvastat in 40mg [id number] Ramona alvares MD [facility] Primary Care [facility] [address] [facility] [address] [facility] [place] [address] 11/20/2024 16:26:51 11/20/2024 17:35:44 Screening - NAD 251677862 Z13.9 C-scope: Get this Mammogram: 06/16/2023 : Neg PAP: Get this done DEXA: 06/15/2023 : Osteopenia , more calcium and vit d in diet Get yearly flu shot, get tdap if not doneGet shingrix vaccineCan do COVID 19 vaccine and its boosters RTC in 3 months, do labsER if worse, she and her verbalized her understand ing of the above Screening for osteoporosis 997480117 Z13.820 Gynecologi c examination 44793042 Z01.419 Screening for malignant neoplasm of colon 671306596 Z12.11 Serum meli min B12 below reference range 686127964 R79.89 Bilateral heel pain 1563 [address] Owen 09/06/2023 , next apt 04/10/2024 Peripheral vascular disease 885270873 I73.9 Dr Olivares 01/26/2024 Cardiac perfusion PET-CT 03/17/2024 Liver enzy mes level above reference range 626106256 R74.01 US Liver 03/01/2024 : NegGGT/Hep panel: Neg Hyperlipidemia 88906796 E78.5 On atorvastat in 40mgWants to restart at 20mg daily as she states that her chol is doing very well 11/20/2024 Not taking this at this time Skin lesion 95871405 L98 .9 79674 Left mid breastDark slightly raised mole notedRefer to G surgery Screening mammography 24 957493 Z12.31 88546344 [id number] Charan post MD [facility] General Surgery [address] [address] 11/30/2024 09:52:09 01/06/2025 11:07:08 Skin lesion 82181147 L98.9 33110 Left Breast [id number] Charan post MD [facility] General Surgery [address] [address] 12/05/2024 11:23:50 12/05/2024 15:01:12 Skin lesion 78348206 L98.9 23331 Left Breast [id number] Charan post MD [facility] General Surgery [address] [address] 12/19/2024 10:26:23 12/19/2024 10:53:55 Skin lesion 17622280 L98.9 93073 Left Breast Health Concerns Section Related Observation LastModified by Organization Detai ls LastModified Time None Recorded Concern Status LastModified by Organization Details LastModified Time None Recorded Advance Directives Directive None Recorded Payers Insurance Date Sequence Insurance Name Policy Number Policy Childs Covered Member ID Childs Member ID Guarantor Name 12/16/2024 1 [employer] [place] - [place] ON OR AFTER 2020 (MEDICAID REPLACEMENT - HMO) Lindsay Reese [id number] Lindsay Reese Notes Date Note Type Note Provider Name and Address Organization Details Recorded Time 06/26/2024 text/html OV 06/09/2023:Here to establish care Present hx:Roshan heel pain Here to discuss above, here with her , c/o roshan heel pain, no acute injury, no N/T or weakness, 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 11/20/2024 18:10:35 11/30/2024 text/html Patient complains of a dark lesion on her skin overlying her left breast that she has had a several years. Denies any itching bleeding or enlargement. Denies any history of skin cancer.. Charan Nicole MD [address], [place], [address], [employer] [facility] 12/01/2024 11:53:05 12/05/2024 text/html Patient here for excision of a dark lesion on her skin overlying her left breast that she has had a several years. Denies any itching bleeding or enlargement. Denies any history of skin cancer.. Charan Nicole MD [address], [place], [address], [employer] [facility] 12/06/2024 12:49:27 12/19/2024 text/html Patient here for f/u after excision of L breast pigmented lesion. Pathology showed seborrheic keratoses.No pain, no drainage, no fevers. Charan Nicole MD [address], [place], [address], [employer] [facility] [email or web address] [facility] 12/20/2024 11:37:36 OBGyn Episode No OBEpisode recorded.
--- OUTSIDE RECORDS SUMMARY | 2025-02-24 09:55 | XMS_ITS | Continuity of Care Document ---
Author Organization ID - [facility] [employer] 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 Pathology showed SK. RTC PRN. Not available 12/19/2024 10:53:50 Plan of Treatment Reminders Order Date Submit Date Provider Last Modified By Organization Details Last Modified Time Details Appointments Follow Up 15 2025 03:30P M Ramona hamlin MD Not available Not available Not available Lab None recorded . Referral None recorded . Procedures None recorded . Surgeries None recorded . Imaging None recorded . Medication Orders None recorded . Patient TargetsNo targets recorded. Patient InstructionsNo instructions recorded. Reason for Referral None Reported. Results Created Date Observation Date Name Description Value Unit Range Abnormal Flag Note LastModifiedBy Organization Detail LastModifiedTime 12/06/1912/11/2024 PATHO LOGY SERVI CE pathserv SEE COMMEN T See separ ate patho logy repor t. Not Available [facility] (Lab) [address] [place], [address], 12/11/2024 16:19:19 11/29/19 25 11/28/2024 scree kathya breas t ingrid, bilat [facility] Y [facility] AL MEDICA [facility] [address], [place] [address] Patien t Name: LINDSAY REESE Access ion #: [id number] Sex: F : 1965 8 7 Dictat ed By: Sandra Lawrence Attend ing Physic julio c: RENETTA MARIA Orderi ng Physic julio c: RENETTA MARIA Exam Date: 2024 15:35 PM Exam Name: MG LUCERO BREAST INGRID BILAT Admitt ing Diagno sis(es [...] a radiol ogist review , an AI anna mariewa re develo ped to enhanc e the [...] annual mammog fely. ASSESS MENT: Page 1 [facility] Y [facility] AL MEDICA [facility] [address] [facility], [place] [address] Patien t Name: LINDSAY REESE Access ion #: [id number] Sex: F : 1965 8 7 Dictat ed By: Sandra Lawrence Attend ing Physic julio c: RENETTA Laura DC LUNDBERGALISSON Orderi Physic julio c: DC MEG BAXTEREMERY Alvares Exam Date: 2024 15:35 PM Exam Name: MG SCRN BREAST INGRID BILAT Admitt ing Diagno sis(es ): BIRADS : 1 - Negati ve Electr onical ly Signed by: Sandra Lawrence at 2024 15:50: 08 PM Page 2 INTERFACE [facility] (Imaging) [address] [place], [address], 11/28/2024 16:52:19 11/29/19 25 11/28/2024 MAMMO , scree kathya, bilat eral No observ ation record ed. [facility] [address] [place], [address], 11/28/2024 16:55:12 Result Notes None recorded. Problems Name Problem SNOMED Code Status Onset Date Resolution Date Notes Provider Name and Address Organization Details Recorded Time Serum vitamin B12 below reference range 012461378 Active 2023 Ramona hamlin MD [address] [facility], [address], [address], [employer] 4 16:45:34 Bilateral heel pain 9847750154080 9108 Active 2023 Ramona hamlin MD [address] [facility], [address], [place], [address], [employer] 4 16:47:33 Bilateral plantar fasciitis 4027122443439 9108 Active 2023 Marc Owen DPM [address] [facility], [address], [place], [address], [employer] 4 16:56:14 Bilateral bone spur of calcaneum 5619849494471 9104 Active 2023 Marc Owen, DPM [address] [facility], [address] [address], [place], [address], [facility] [employer] [facility] 4 13:39:42 Peripheral vascular disease 516098500 Active 2023 Ramona hamlin MD [address], [place] [address] [address], [place], [address], [facility] [employer] [facility] 4 17:12:46 Hyperlipide tony 69719571 Active 2023 Esme Paez MA null, [facility] 4 11:25:12 Vitamin D deficiency 46903186 Active 2023 Esme Paez MA null, [facility] 4 11:25:31 Liver enzymes level above reference range 430237353 Active 2023 Esme Paez MA null, [facility] 4 11:25:47 Skin lesion 33443953 Active 2024 Ramona hamlin MD [address], [address] [address], [place], [address], [facility] [employer] [facility] 5 17:33:47 Problem Notes None recorded. Procedures Surgical History Date Name Laterality Status Provider Name and Address Organization Details Recorded Time Excision Cyst Multilayer completed Charan almonte MD [address], [address] [address], [place], [address], [facility] [employer] [facility] 12/05/2024 14:53:52 Imaging Results None recorded. Procedure [...] Updated DateTime 5 167.64 cm 26.6 kg/m2 89216.7 4 g 98 [degF] 82 /min 14 /min 99 % 122/82 mm[Hg] Cally Greco [email or web address] 10:31:06 Social History Question Answer Notes LastModified by Organization Details LastModified Time Tobacco Smoking Status Former Smoker quit age 38 HUANG Lanec, [employer] 06/26/2024 17:03:24 What Is Your Level Of [...] Or The Highest Degree You Have Received? [id number] Information not available 06/09/2023 Have There Been Any Changes To Your Family Or Social Situation? No Information not available 06/09/2023 What Is The Fluoride Status Of Your Home? Unknown Information not available 06/09/2023 When Did You Quit Smoking? 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 Moderate Information not available 06/09/2023 Mental Status Question Answer Note LastModified by Organization D etails LastModified Time Do you feel stressed (tense, restless, nervous, or anxious, or unable to sleep at night)? [id number] Information not available 06/09/2023 Family History Relationship Description Onset Age of this Age Resolved Age Notes LastModified by Organization Details LastModified Time Father No current problems or disability [email or web address] Not available 08/2023 15:50:10 Mother No current problems or disability [email or web address] Not available 08/2023 15:50:10 Medical History Condition Response NERVE DISEASE N BLINDNESS N RHEUMATIC FEVER N KIDNEY STONES N BLADDER PROBLEMS N MRSA N OTHER # 1 N POLIO N LUNG DISEASE/DISORDER N HISTORY OF DRUG ABUSE N RADIATION / CHEMOTHERAPY N COPD N Other # 2 N BLOOD DISEASES N EAR OR HEARING PROBLEMS N MUMPS N SHINGLES N DEPRESSION (INCLUDING POST ) N BOWEL PROBLEMS N FAILED BACK SYNDROME N STROKE/TIA N ULCERS N BENIGN PROSTATIC HYPERPLASIA N MEASLES N HYPOTENSION N MYOCARDIAL INFARCTION N OBESITY N GERD/NAUSEA N ANEURYSM N URINARY/BLADDER/KIDNEY PROBLEMS N CORONARY ARTERY DISEASE (CAD) N Do you have Advance directive? N ADDICTION CONCERNS N Impotence N ENDOMETRIOSIS N USE OF BLOOD THINNERS N SKIN PROBLEMS N GASTROINTESTINAL DISORDER N PERIPHERAL VASCULAR DISEASE N MUSCLE,JOINT OR BONE PROBLEMS N GASTROINTESTINAL BLEEDING N BLOOD CLOTS N ASTHMA N CATARACTS N Abdominal Pain N ERECTILE DYSFUNCTION N ARTERIAL INSUFFICIENCY N VARICOSITIES N GI PROBLEMS N Low Testosterone N INFERTILITY N AIDS/HIV N CHEMOTHERAPY / RADIATION N LIVER DISEASE N MALE HYPOGONADISM N HYPERTENSION N Deficiency N TOURETTE'S N ANXIETY DISORDER N BLOOD TRANSFUSION N ANEMIA/BLOOD DISORDER N CHRONIC EAR INFECTIONS N TUBERCULOSIS N GLAUCOMA N FOOT PROBLEM N DIVERTICULITIS N SLEEP APNEA N CHICKENPOX N BACK INJECTIONS N ALLERGIES/HAYFEVER N INFECTIOUS DISEASE N PROSTATE N HEART ARRHYTHMIA N INSOMNIA N ESRD N HIGH CHOLESTEROL / HYPERLIPIDEMIA N HYPERTHYROIDISM N EYE PROBLEMS N PVD N EDEMA N CHRONIC PAIN SYNDROME N HYPOTHYROIDISM N CONSTIPATION N CAROTID BLOCKAGE N BACK / NECK PROBLEMS N HAVE YOU BEEN HOSPITALIZED OR SEEN IN [facility] IN THE PAST YEAR ? N [...] Brain Problems N HERPES N DEMENTIA N SEIZURES/EPILEPSY N HEADACHES/MIGRAINES N VASCULAR DISEASE N PACEMAKER N DIZZINESS N KIDNEY DISEASE N HEART DISEASE/HEART PROBLEMS N MULTIPLE SCLEROSIS N NEUROPSYCHOLOGICAL N CARDIAC ARRHYTHMIA N CANCER: SPECIFY N Gall Stones N ATRIAL FIBRILLATION N PULMONARY EMBOLISM N AUTOIMMUNE DISEASE N Gynecological HistoryNo gynecological history recorded. Obstetrics History GPAL:G 0 P 0 0 0 0 Immunizations Vaccine Type Date Status Note Provider Nam e and Address Organization Details Recorded Time COVID-19, mRNA, LNP-S, PF, 30 mcg/0.3 mL dose 07/07/2020 completed HUANG Lance [facility] [employer] [facility] 06/26/2024 17:02:17 COVID-19, mRNA, LNP-S, PF, 30 mcg/0.3 mL dose 07/28/2020 completed HUANG Lance [facility] [employer] [facility] 06/26/2024 17:02:17 Past Encounters Encounter ID Performer Location Encounter Start Date Encounter Closed Date Diagnosis/Indication Diagnosis SNOMED-CT Code Diagnosis ICD10 Code Diagnosis IMO Codes Diagnosis Note [id number] Ramona alvares MD [facility] [address] [place] [address] 11/20/2024 16:26:51 11/20/2024 17:35:44 Screening - NAD 884972281 Z13.9 C-scope: Get this Mammogram: 06/16/2023 : Neg PAP: Get this done DEXA: 06/15/2023 : Osteopenia , more calcium and vit d in diet Get yearly flu shot, get tdap if not doneGet shingrix vaccineCan do COVID 19 vaccine and its boosters RTC in 3 months, do labsER if worse, she and her verbalized her understand ing of the above Screening for osteoporosis 314216370 Z13.820 Gynecologi c examination 98245017 Z01.419 Screening for malignant neoplasm of colon 103591045 Z12.11 Serum meli min B12 below reference range 784932851 R79.89 Bilateral heel pain 1563 5599[address]79.[address] Owen 09/06/2023 , next apt 04/10/2024 Peripheral vascular disease 263127820 I73.9 Dr Olivares 01/26/2024 Cardiac perfusion PET-CT 03/17/2024 Liver enzy mes level above reference range 119489133 R74.01 US Liver 03/01/2024 : NegGGT/Hep panel: Neg Hyperlipidemia 75875292 E78.5 On atorvastat in 40mgWants to restart at 20mg daily as she states that her chol is doing very well 11/20/2024 Not taking this at this time Skin lesion 65701430 L98 .9 71687 Left mid breastDark slightly raised mole notedRefer to G surgery Screening mammography 24 681206 Z12.31 65848865 [id number] Charan post MD [facility] General Surgery [address] [address] 11/30/2024 09:52:09 01/06/2025 11:07:08 Skin lesion 74766958 L98.9 08415 Left Breast [id number] Charan post MD [facility] General Surgery [address] [address] 12/05/2024 11:23:50 12/05/2024 15:01:12 Skin lesion 73841438 L98.9 07079 Left Breast [id number] Charan post MD [facility] General Surgery [address] [address] 12/19/2024 10:26:23 12/19/2024 10:53:55 Skin lesion 67640829 L98.9 61814 Left Breast Health Concerns Section Related Observation LastModified by Organization Detai ls LastModified Time None Recorded Concern Status LastModified by Organization Details LastModified Time None Recorded Payers Encounter Date Sequence Insurance Name Policy Number Policy Childs Covered Member ID Childs Member ID Guarantor Name 12/19/2024 1 [employer] [place] ON [place] AFTER 2020 (MEDICAID REPLACEMENT - HMO) Lindsay Reese [id number] Lindsay Reese Notes Date Note Type Note Provider Name and Address Organization Details Recorded Time 12/19/2024 text/html Patient here for f/u after excision of L breast pigmented lesion. Pathology showed seborrheic keratoses.No pain, no drainage, no fevers. Charan Nicole MD [address] [place] [address], [place], [address], [facility] [employer] 12/20/2024 11:37:36 OBGyn Episode No OBEpisode recorded.
--- OUTSIDE RECORDS SUMMARY | 2025-02-24 09:55 | XMS_ITS | Continuity of Care Document ---
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 Will schedule for excisional biopsy here in the office under local anesthesia. Risks benefits procedure were discussed. Risks include bleeding, infection and numbness Not available 11/30/2024 11:17:49 Plan of Treatment Reminders Order Date Submit [...] Abnormal Flag Note LastModifiedBy Organization Detail LastModifiedTime 11/29/1911/28/2024 screascencion alcarazg breas t ingrid, bilat [facility] [address], [place] [id number] Patien t Name: LINDSAY REESE Access ion #: [id number] Sex: F : 1965 8 7 Dictat ed By: Sandra Lawrence Attend ing Physic julio c: RUSSRENETTA BEARD Orderi ng Physic julio c: DC BAXTERRENETTA Exam Date: 2024 15:35 PM Exam Name: [...] annual mammog fely. ASSESS MENT: Page 1 [facility] [address] [phone] Paticriss t Name: ILNDSAY REESE Access ion #: [id number] Sex: F : 1965 8 7 Dictat ed By: Sandra Lawrence Attend ing Physic julio c: RENETTA Alvares, JOELMonserrat VEE Orderi Physic julio c: RENETTA MARIA Exam Date: 2024 15:35 PM Exam Name: MG BARKER BREAST INGRID BILAT Admitt ing Diagno sis(es ): BIRADS : 1 - Negati ve Electr onical ly Signed by: Sandra Lawrence at 2024 15:50: 08 PM Page 2 INTERFACE [facility] (Imaging) [address] [place], [address], 11/28/2024 16:52:19 11/29/19 25 11/28/2024 MAMMO , scree kathya, bilat eral No observ ation record ed. [facility] [address] [place], [address], 11/28/2024 16:55:12 Result Notes None recorded. Problems Name Problem SNOMED Code Status Onset Date Resolution Date Notes Provider Name and Address Organization Details Recorded Time Serum vitamin B12 below reference range 293087014 Active 2023 Ramona hamlin MD [address], [place], [address], [employer] 4 16:45:34 Bilateral heel pain 3675125867400 9108 Active 2023 Ramona hamlin MD [address], [place], [address], [employer] 4 16:47:33 Bilateral plantar fasciitis 4288233013468 9108 Active 2023 Marc Owen DPM [address], [place], [address], [employer] 4 16:56:14 Bilateral bone spur of calcaneum 6763326437033 9104 Active 2023 Marc Owen DPM [address], [place], [address], [employer] 4 13:39:42 Peripheral vascular disease 870611266 Active 2023 Ramona hamlin MD [address] [facility], [place] [address], [place], [address], [facility] 4 17:12:46 Hyperlipide tony 42567682 Active 2023 Esme Paez MA null, [facility] 4 11:25:12 Vitamin D deficiency 63608058 Active 2023 Esme Paez MA null, [facility] 4 11:25:31 Liver enzymes level above reference range 900302350 Active 2023 Esme Paez MA null, [facility] 4 11:25:47 Skin lesion 46147338 Active 2024 Ramona hamlin MD [address], [place] [address], [place], [address], [facility] 5 17:33:47 Problem Notes None recorded. Procedures Surgical History Date Name Laterality Status Provider Name and Address Organization Details Recorded Time Excision Cyst Multilayer completed Charan almonte MD [address] [facility], [place] [address], [place], [address], [facility] 12/05/2024 14:53:52 Imaging Results None recorded. Procedure [...] and Address Organization Details Last Updated DateTime 167.64 cm 26.6 kg/m2 57877.7 4 g 97.8 [degF] 14 /min 84 /min 98 % 120/80 mm[Hg] Cally Greco [employer] 10:32:01 Social History Question Answer Notes LastModified by Organization Details LastModified Time Tobacco Smoking Status Former Smoker quit age 38 HUANG Lance, [employer] 06/26/2024 17:03:24 What Is Your Level Of [...] Or The Highest Degree You Have Received? [id number] Information not available 06/09/2023 Have There Been Any Changes To Your Family Or Social Situation? No Information not available 06/09/2023 What Is The Fluoride Status Of Your Home? Unknown Information not available 06/09/2023 When Did You Quit Smoking? 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 Moderate Information not available 06/09/2023 Mental Status Question Answer Note LastModified by Organization D etails LastModified Time Do you feel stressed (tense, restless, nervous, or anxious, or unable to sleep at night)? [id number] Information not available 06/09/2023 Family History Relationship Description Onset Age of this Age Resolved Age Notes LastModified by Organization Details LastModified Time Father No current problems or disability [email or web address] Not available 08/2023 15:50:10 Mother No current problems or disability [email or web address] Not available 08/2023 15:50:10 Medical History Condition [...] DIVERTICULITIS N SLEEP APNEA N CHICKENPOX N ALLERGIES/HAYFEVER N BACK INJECTIONS N INFECTIOUS DISEASE N PROSTATE N HEART ARRHYTHMIA N ESRD N INSOMNIA N HIGH CHOLESTEROL / HYPERLIPIDEMIA N EYE PROBLEMS N HYPERTHYROIDISM N PVD N EDEMA N CHRONIC PAIN SYNDROME N HYPOTHYROIDISM N CAROTID BLOCKAGE N CONSTIPATION N BACK / NECK PROBLEMS N HAVE YOU BEEN HOSPITALIZED OR SEEN IN [facility] IN THE PAST YEAR ? N [...] N ALZHEIMER'S DISEASE N Brain Problems N DEMENTIA N HERPES N SEIZURES/EPILEPSY N HEADACHES/MIGRAINES N VASCULAR DISEASE N PACEMAKER N DIZZINESS N HEART DISEASE/HEART PROBLEMS N KIDNEY DISEASE N MULTIPLE SCLEROSIS N NEUROPSYCHOLOGICAL N CANCER: SPECIFY N CARDIAC ARRHYTHMIA N ATRIAL FIBRILLATION N Gall Stones N PULMONARY EMBOLISM N AUTOIMMUNE DISEASE N Gynecological HistoryNo gynecological history recorded. Obstetrics History GPAL:G 0 P 0 0 0 0 Immunizations Vaccine Type Date Status Note Provider Nam e and Address Organization Details Recorded Time COVID-19, mRNA, LNP-S, PF, 30 mcg/0.3 mL dose 07/07/2020 completed HUANG Lance, [place] [address] [place] [address] [employer] [facility] [facility] 06/26/2024 17:02:17 COVID-19, mRNA, LNP-S, PF, 30 mcg/0.3 mL dose 07/28/2020 completed HUANG Lance, [employer] [facility] [employer] [facility] 06/26/2024 17:02:17 Past Encounters Encounter ID Performer Location Encounter Start Date Encounter Closed Date Diagnosis/Indication Diagnosis SNOMED-CT Code Diagnosis ICD10 Code Diagnosis IMO Codes Diagnosis Note [id number] Ramona alvares MD [facility] Primary Care [address] [place] [address] 11/20/2024 16:26:51 11/20/2024 17:35:44 Screening - NAD 667401279 Z13.9 C-scope: Get this Mammogram: 06/16/2023 : Neg PAP: Get this done DEXA: 06/15/2023 : Osteopenia , more calcium and vit d in diet Get yearly flu shot, get tdap if not doneGet shingrix vaccineCan do COVID 19 vaccine and its boosters RTC in 3 months, do labsER if worse, she and her verbalized her understand ing of the above Screening for osteoporosis 188718492 Z13.820 Gynecologi c examination 33678611 Z01.419 Screening for malignant neoplasm of colon 076475835 Z12.11 Serum meli min B12 below reference range 079760388 R79.89 Bilateral heel pain 1563 [address] M79.[address] Owen 09/06/2023 , next apt 04/10/2024 Peripheral vascular disease 677028324 I73.9 Dr Olivares 01/26/2024 Cardiac perfusion PET-CT 03/17/2024 Liver enzy mes level above reference range 866829870 R74.01 Liver 03/01/2024 : NegGGT/Hep panel: Neg Hyperlipidemia 02915841 E78.5 On atorvastat in 40mgWants to restart at 20mg daily as she states that her chol is doing very well 11/20/2024 Not taking this at this time Skin lesion 40223951 L98 .9 79625 Left mid breastDark slightly raised mole notedRefer to G surgery Screening mammography 24 936648 Z12.31 80222005 [id number] Charan post MD [facility] General Surgery [address] [facility] [address], [facility] [address] [place] [address] 11/30/2024 09:52:09 01/06/2025 11:07:08 Skin lesion 30430469 L98.9 98705 Left Breast Health Concerns Section Related Observation LastModified by Organization Detai ls LastModified Time None Recorded Concern Status LastModified by Organization Details LastModified Time None Recorded Payers Encounter Date Sequence Insurance Name Policy Number Policy Childs Covered Member ID Childs Member ID Guarantor Name 11/30/2024 1 [employer] [place] - DOS ON OR AFTER 2020 (MEDICAID REPLACEMENT - HMO) [id number] Notes Date Note Type Note Provider Name and Address Organization Details Recorded Time 11/30/2024 text/html Patient complains of a dark lesion on her skin overlying her left breast that she has had a several years. Denies any itching bleeding or enlargement. Denies any history of skin cancer.. Charan Nicole MD [address] [facility], [facility] [address], [place], [address], [facility] 12/01/2024 11:53:05 OBGyn Episode No OBEpisode recorded.
--- OUTSIDE RECORDS SUMMARY | 2025-02-24 09:55 | XMS_ITS | Clinical Summary ---
Author Organization [facility] Address [address] [address] Phone Care Team Providers Care Cook Italian Style Food Name Role Phone Ramona Gaspar MD Primary Care Provider Lisha Gimenez MD Unavailable [phone] Allergies No known active allergies Medications atorvastatin (LIPITOR) 20 MG Tablet Take 20 mg by mouth daily. Active Multiple Vitamin (MULTI-VITAMIN PO) Take by mouth. Active Encounters Date Type Department Care Team Description 12/14/2024 10:45 AM CDT Office Visit [facility] - Cardiology [facility] [address] [place] [address] Lisha Gimenez MD Mixed hyperlipidemia (Primary Dx) Discharge Disposition: Discharged to home or Selfcare 12/14/2024 Travel from Last 3 Months Social History Tobacco Use Types Packs/Day Years Used Date Smoking Tobacco: Never Smokeless Tobacco: Never Tobacco Cessation:Counseling Given: Not Answered Alcohol Use Standard Drinks/Week Comments Never 0 (1 standard drink = 0.6 oz pur e alcohol) Comments Unknown Sex and Gender Information Value Date Recorded Sex Assigned at Not on file 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 Gender Identity Not on file Sexual Orientation Not on file Last Filed Vital Signs Vital Sign Reading Time Taken Comments Blood Pressure 150/100 12/14/2024 10:30 AM CDT Pulse 74 12/14/2024 10:30 AM CDT Temperature 36.3 C (97.3 F) 12/14/2024 10:30 AM CDT Respiratory Rate 16 12/14/2024 10:3 0 AM CDT Oxygen Saturation 100% 12/14/2024 10: 30 AM CDT Inhaled Oxygen Concentration - - Weight 75.7 kg (166 lb 12.8 oz) 025 10:30 AM CDT Height 167.6 cm (5' 6) 12/14/2024 10:3 0 AM CDT Body Mass Index 26.92 12/14/2024 10:30 AM CDT Plan of Treatment Upcoming Encounters Date Type Department Care Team (Late st Contact Info) Description 12/19/2025 10:00 AM CDT Office Visit [facility] - [facility]iology - [place] [address] [place] [address] Jenise Sousa APRN, MEDICAL RESEARCH ASSISTANT [address] [address] Health Maintenance Due Date Last Done Comments Hepatitis C Virus (HCV) Screening 1965 Mammogram 1965 TdaP Immunization 1965 Pap Smear 07/25/1984 Cervical Cancer Screening (CCS) 07/25/1993 HPV/Cotest 07/25/1993 Cologuard 07/25/2008 Colonoscopy 07/25/2008 Colorectal Cancer Screening 07/25/2008 Immunochemical Fecal Occult Blood 07/25/2008 Pneumococcal Immunization (5 0+ years) (1 of 1 - PCV) 07/25/2013 Respiratory Syncytial Virus (RSV) Immunization (Adult) (1 - Risk 50-74 years 1-dose series) 07/25/2013 Zoster Immunization (1 of 2) 07/25/2013 Influenza Immunization (#1) 2024 SARS-COV-2 Immunization ( season) 2024 07/28/2020, 07/07/2020 Hepatitis B Immunization Aged Out No longer eligible based on patient's age to complete this topic Human Papillomavirus (HPV) Immunization (No Doses Required) Completed Meningococcal Immunization (ACWY) Aged Out No longer eligible b ased on patient's age to complete this topic Rotavirus Immunization Aged Out No lo nger eligible based on patient's age to complete this topic Insurance MEDICAID [facility] Care Teams Cook Italian Style Food Relationship Specialty Start Date End Date Ramona Gaspar MD [address] [place] [address] PCP - General Internal Medicine 04/04/24 Lisha Gimenez MD [address] [place] [address] Consulting Physician Cardiology 12/15/24
[2025-02-24 09:56] VITALS: BP 134/77; PULSE 76; RESP 20; TEMP 36.5; O2SAT 100
[2025-02-24] MEDS: FLUORESCEIN SOD 1 MG/STRIP RIGHT EYE (10:24)
[2025-02-24] MEDS: TETRACAINE HCL 0.5% OPHTH SOLN 4 ML BTL 1 DROP RIGHT EYE (10:24)
[2025-02-24] MEDS: DACRIOSE EYE IRRIGATION 118 ML BOTTLE 10 ML RIGHT EYE (10:24)
--- NOTE | 2025-02-24 10:36 | ED.EYEPROB ---
HPI - Eye Problem General Chief complaint: Eye Problems Stated complaint: right eye Time Seen by Provider: 02/24/25 10:16 Source: patient and RN notes reviewed Mode of arrival: ambulatory Limitations: no limitations History of Present Illness HPI Narrative: 59-year-old female patient with history of implanted contact lenses, complains of right eye irritation or foreign body sensation x2 days after cleaning at home over her head. She has tried flushing with water and using artificial tears without relief. Denies vision changes. Reports some white discharge from the eye this morning. Related Data Home Medications ?Medication ?Instructions ?Recorded ?Confirmed ?Last Taken ?Type atorvastatin 20 mg tablet mg 02/24/25 Unknown History Allergies Allergy/AdvReac Type Severity Reaction Status Date / Time No Known Allergies Allergy Verified 02/24/25 10:15 PMFSH Past Medical History Medical History Post-menopausal Social History Social History Smoking status: Former smoker Alcohol intake: current Alcohol use details: rare Substance use type: does not use Living arrangements: with family Gender identity (if verbalized by the patient): Female Comments At time of signature, I have reviewed and agree with nursing past medical, surgical, social and family history unless otherwise noted. Please see nursing chart for further information. There is no relevant family history pertinent to the presenting complaint Exam Narrative: GENERAL: Well-appearing, well-nourished, and in no acute distress. HEAD: Normocephalic, atraumatic. EYES: EOMI. PERRL. No redness or drainage. Conjunctivae normal. Right eye: Fluorescein uptake noted. Lids and lashes normal. See procedure note. ENT: Mucous membranes pink and moist. NECK: Normal AROM. CHEST: No respiratory distress. EXTREMITIES: Normal range of motion. No edema. SKIN: Warm, dry, no rash. Capillary refill normal. Normal skin turgor. NEURO: No focal deficits. Alert and oriented x3. Gait steady. PSYCH: Normal affect. No signs of depression or anxiety. Course Course Level of Care: Express Care Visit Vital Signs Vital signs: Vital Signs Temperature 97.7 F 02/24/25 09:56 Pulse Rate 76 02/24/25 09:56 Respiratory Rate 20 02/24/25 09:56 Blood Pressure 134/77 02/24/25 09:56 Pulse Oximetry 100 02/24/25 09:56 Oxygen Delivery Room Air 02/24/25 09:56 Temperature 97.7 F 02/24/25 09:56 Pulse Rate 76 02/24/25 09:56 Respiratory Rate 20 02/24/25 09:56 Blood Pressure 134/77 02/24/25 09:56 Pulse Oximetry 100 02/24/25 09:56 Oxygen Delivery Room Air 02/24/25 09:56 Reviewed Procedures Other Procedure Procedure 1: Other Procedure: Right eye was anesthetized with 1 drop of tetracaine and anesthesia was achieved. The eye was flushed with eye wash. Lid was inverted and examined. Moistened Qtip was used to sweep underneath the upper eyelid with 0 foreign bodies resulting. Cornea was dyed with fluorescein and 1 large abrasions noted to the 10/11 oclock position outside the iris. Pt tolerated procedure well. MDM MDM Narrative Medical decision making narrative: 59-year-old female patient with history of implanted contact lenses, complains of right eye irritation or foreign body sensation x2 days after cleaning at home over her head. She has tried flushing with water and using artificial tears without relief. Denies vision changes. Reports some white discharge from the eye this morning. Upon exam, fluorescein uptake to right eye with Wood's Lamp exam. Patient will be started on polytrim to prevent infection. Recommend follow up with patient's eye doctor to ensure proper healing. Patient agrees with plan. VSS. Anticipatory guidance given. Differential Diagnosis Differential Diagnosis: corneal abrasion, ulceration, conjunctivitis Critical Care Time Critical Care Time Critical Care Time: No Discharge Plan Discharge Clinical Impression: Abrasion of right cornea Qualifiers: Encounter type: initial encounter Qualified Code(s): S05.01XA - Injury of conjunctiva and corneal abrasion without foreign body, right eye, initial encounter Patient Disposition: Home Condition: Stable Instructions: Corneal Abrasion (DC) Additional Instructions: Your exam shows a corneal abrasion. Please use the eyedrops as directed. Is recommended that you follow-up with your eye doctor to ensure proper healing. Take Tylenol or ibuprofen for pain, if able. Patient Language: Japanese Prescriptions: New polymyxin B sulf-trimethoprim 10,000 unit- 1 mg/mL drops 1 drp RIGHT EYE QID 7 Days Qty: 10 0RF No Action atorvastatin 20 mg tablet Follow-up/Referrals: PHYSICIAN NOT ON STAFF,NONSTAFF [Primary Care Provider] Time of Disposition: 10:35
== END 2025-02-24 10:39 | disposition home or self-care (01) ==
PROVIDERS: Emergency Provider Nurse Practitioner
DX: S05.01XA Injury of conjunctiva and corneal abrasion without foreign body, right eye, initial encounter (principal); X58.XXXA Exposure to other specified factors, initial encounter; Z87.891 Personal history of nicotine dependence
CPT/HCPCS: 99213; A9270; G0463